=== PATIENT | female | born 1980 | race Caucasian/White ===

== ENCOUNTER → 2020-03-11 | Outpatient (CLI) | payer BC ==
--- NOTE | 2020-03-14 08:21 | Diagnostic Imaging Report ---
#[id number] - MGSCRBIL #BILATERAL FIRST EVER DIGITAL SCREENING MAMMOGRAM WITH CAD: 03/11/2020 CLINICAL: Routine screening. No prior exams were available for comparison. Current study contains 4 films. There are scattered fibroglandular elements in both breasts. Current study was also evaluated with a Computer Aided Detection (CAD) system. Benign calcification is present in the right breast. No significant masses, calcifications, or other findings are seen in either breast. IMPRESSION: BENIGN There is no mammographic evidence of malignancy. A 1 year screening mammogram is recommended. The patient will be notified by letter of the results. DOTTIE ALMAZAN M.D. ct/penrad:03/13/2020 15:59:55 Commercial Agent: Aidee GARCIA(R)(M), [facility] letter sent: Normal Exam Mammogram BI-RADS: 2 Benign
== END ==
LOC: MAMMO 08:30
PROVIDERS: ATTEND Internal Medicine
DX: Z12.31 Encounter for screening mammogram for malignant neoplasm of breast (principal)
CPT/HCPCS: 77067